=== PATIENT | male | born 1985 | race Caucasian/White ===

== ENCOUNTER 2018-04-06 19:06 | Emergency (ER) | payer OTHER ==
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
[2018-04-06] MEDS ORDERED: OXYCODONE/APAP 5/325 TAB PO ONE (20:08)
[2018-04-06] MEDS ORDERED: TDAP ADULT 0.5 ML INJ (BOOSTRIX) IM ONE (20:08)
[2018-04-06 21:06] VITALS: BP 150/90
== END 2018-04-06 21:33 | disposition home or self-care (01) ==
DX: S43.102A Unspecified dislocation of left acromioclavicular joint, initial encounter (principal); V18.0XXA Pedal cycle driver injured in noncollision transport accident in nontraffic accident, initial encounter; Y93.55 Activity, bike riding; Y92.830 Public park as the place of occurrence of the external cause
CPT/HCPCS: A4565